=== PATIENT | female | born 1985 | race Caucasian/White ===

== ENCOUNTER 2019-03-31 12:31 | Emergency (ER) | payer OTHER, BC ==
[2019-03-31] MEDS ORDERED: ONDANSETRON 4 MG TAB.RAPDIS PO ONE (13:33)
[2019-03-31] MEDS ORDERED: ACETAMINOPHEN 325 MG TABLET PO ONE (13:33)
--- NOTE | 2019-03-31 13:34 | ER Document Report ---
ED Medical Screen (RME) - General Chief Complaint: Syncope Stated Complaint: HEADACHE Time Seen by Provider: 03/31/19 13:28 Primary Care Provider: MEHNAZ LILLY NP-C [Primary Care Provider] - Follow up as needed TRAVEL OUTSIDE OF THE [place] IN LAST 30 DAYS: No - HPI Notes: 03/31/19 13:29 Patient is a 33-year-old female with history of mental health disorder and hypertension who presents complaining of head injury and dizziness prior to arrival. Patient states that she was at work when she was bending over, felt dizzy, fell and hit her head off of the desk. Patient states that she hit the left forehead. She has noticed some swelling to the left side of her forehead. Patient states that she did not injure any other part of her body. Patient does recall feeling dizzy, losing her balance, falling, and hitting her head. Patient states that she also feels some tingling to her left cheek. Patient does not believe she had complete loss of consciousness. Patient states that she does feel sluggish with light sensitivity and nausea. Denies any fever, neck pain, changes in vision/speech/mentation/hearing, URI, sore throat, chest pain, palpitations, syncope, cough, shortness of breath, wheeze, dyspnea, abdominal pain, nausea/vomiting/diarrhea, urinary retention, dysuria, hematuria, loss of control of bowel or bladder, numbness, saddle anesthesia, muscle paraly sis/weakness, or rash. I have treated and performed a rapid initial assessment of this patient. A comprehensive ED assessment and evaluation of the patient, analysis of test results and completion of medical decision making process will be conducted by additional ED providers. CT [place] Head Criteria negative, NEXUS negative. I reviewed risk/benefit of imaging with the patient vs obs and she would like to hold off on CT imaging at this time as well unless discussed otherwise with main side provider. We will check labs due to dizziness prior to incident. PHYSICAL EXAMINATION: accompanied by female nurse GENERAL: Well-appearing, well-nourished and in no acute distress. A&Ox4. Answers questions appropriately but does have a flat affect. HEAD: No knutson sign. + mild swelling left forehead. EYES: Pupils equal round and reactive to light, extraocular movements intact, sclera anicteric, conjunctiva are normal. No raccoon eyes/entrapment ENT: EAC clear b/l. TM's intact b/l without erythema, fluid, or perforation. Nares patent and without discharge. oropharynx clear without exudates. No tonsilar hypertrophy or erythema. Moist mucous membranes. No sinus tenderness. No hemotympanum/CSF discharge. NECK: Normal range of motion, supple without lymphadenopathy. No rigidity. No midline tenderness. LUNGS: Breath sounds clear to auscultation bilaterally and equal. No wheezes rales or rhonchi. HEART: Regular rate and rhythm without murmurs, rubs, gallops. Musculoskeletal: Ext's b/l: FROM to passive/active. Strength 5+/5. No deficits noted. No bony tenderness of extremities. Back: FROM to passive/active. Strength 5+/5. No vertebral point tenderness, stepoffs, or deformities. No other bony tenderness or ecchymosis. Extremities: No cyanosis, clubbing, or edema b/l. Peripheral pulses 2+. Capillary refill less than 2 seconds. NEUROLOGICAL: NIH 0. GCS 15. Cranial nerves grossly intact. Normal speech, normal gait. Normal sensory, motor exams. Reflexes 2+ b/l. SANJAY's negative. Pronator drift negative. Heel/aldrich, finger/nose wnl. PSYCH: Normal mood, normal affect. SKIN: see above. - Related Data Allergies/Adverse Reactions: amoxicillin [Amoxicillin] Allergy (Verified 09/28/15 11:55) Past Medical History - Social History Frequency of alcohol use: None Drug Abuse: None - Past Medical History Cardiac Medical History: Reports: Hx Hypercholesterolemia, Hx Hypertension Pulmonary Medical History: Denies: Hx Tuberculosis Neurological Medical History: Reports: Hx Migraine. Denies: Hx Seizures Renal/ Medical History: Reports: Hx Ovarian Cysts. Denies: Hx Peritoneal Dialysis GI Medical History: Denies: Hx Irritable Bowel Psychiatric Medical History: Reports: Hx Anxiety Past Surgical History: Reports: Hx Abdominal Surgery - laproscopic surgeries, Hx Section - x 2, Hx Cholecystectomy, Hx Gynecologic Surgery - c-sections x 2. Denies: Hx Hysterectomy, Hx Pacemaker - Immunizations Immunizations up to date: Yes Hx Diphtheria, Pertussis, Tetanus Vaccination: Yes Physical Exam - Vital signs Vitals: Temp Pulse Resp BP Pulse Ox 98.2 F 74 16 136/83 H 100 03/31/19 13:08 03/31/19 13:08 03/31/19 13:08 03/31/19 13:08 03/31/19 13:08 Course - Vital Signs Vital signs: Temp Pulse Resp BP Pulse Ox 98.2 F 74 16 136/83 H 100 03/31/19 13:08 03/31/19 13:08 03/31/19 13:08 03/31/19 13:08 03/31/19 13:08 Doctor's Discharge - Discharge Referrals: MEHNAZ LILLY NP-C [Primary Care Provider] - Follow up as needed
[2019-03-31 13:56] LABS: ABSOLUTE BASOPHILS # (AUTO) 0.1 10^3/uL (0.0-0.2); ABSOLUTE LYMPHOCYTES (AUTO) 1.8 10^3/uL (0.5-4.7); ABSOLUTE MONOCYTES (AUTO) 0.4 10^3/uL (0.1-1.4); ABSOLUTE NEUT (AUTO) 5.5 10^3/uL (1.7-8.2); BASOPHILS % (AUTO) 0.8 % (0-2); HEMATOCRIT 36.4 % (36.0-47.0); HEMOGLOBIN 12.4 g/dL (12.0-15.5); LYMPHOCYTES % (AUTO) 23.2 % (13-45); MEAN CORPUSCULAR HEMOGLOBIN 28.5 pg (27.0-33.4); MEAN CORPUSCULAR HGB CONC 34.1 g/dL (32.0-36.0); MEAN CORPUSCULAR VOLUME 84 fl (80-97); MONOCYTES % (AUTO) 5.4 % (3-13); PLATELET COUNT 322 10^3/uL (150-450); RED BLOOD COUNT 4.36 10^6/uL (3.72-5.28); RED CELL DISTRIBUTION WIDTH 14.5 % (11.5-14.0); SEGMENTED NEUTROPHILS % (AUTO) 70.6 % (42-78); TOTAL CELLS COUNTED % (AUTO) 100 %; WHITE BLOOD COUNT 7.8 10^3/uL (4.0-10.5)
[2019-03-31 14:14] LABS: ALANINE AMINOTRANSFERASE 31 U/L (9-52); ALBUMIN 4.2 g/dL (3.5-5.0); ALKALINE PHOSPHATASE 87 U/L (38-126); ANION GAP 8 (5-19); ASPARTATE AMINO TRANSFERASE 24 U/L (14-36); BILIRUBIN,DIRECT 0.2 mg/dL (0.0-0.4); BILIRUBIN,TOTAL 0.5 mg/dL (0.2-1.3); BLOOD UREA NITROGEN 9 mg/dL (7-20); CALCIUM 9.2 mg/dL (8.4-10.2); CARBON DIOXIDE 26 mmol/L (22-30); CHLORIDE 106 mmol/L (98-107); GLUCOSE 95 mg/dL (75-110); POTASSIUM 3.9 mmol/L (3.6-5.0); SODIUM 139.8 mmol/L (137-145)
--- NOTE | 2019-03-31 15:25 | ER Document Report ---
ED Syncope and Near Syncope - General Chief Complaint: Syncope Stated Complaint: HEADACHE Time Seen by Provider: 03/31/19 13:28 Primary Care Provider: MEHNAZ LILLY NP-C [Primary Care Provider] - Follow up as needed TRAVEL OUTSIDE OF THE [place] IN LAST 30 DAYS: No - HPI Notes: Patient is a 33-year-old female that presents to the emergency department for chief complaint of near syncope. Patient states she was at work and began to feel nauseated and lightheaded. She states that she then collapsed to the ground hitting her left forehead on a counter on the way down. She does not believe she completely lost consciousness but states she does not entirely remember the fall. She has had pain over her left forehead and nausea since then. She does states she has a history of hypertension and 2 weeks ago her blood pressure medication was decreased because her blood pressure had been dropping into the 90s systolic. Patient states she has not had anything to eat or drink today. She does have history of similar episodes of passing out a few years ago. Patient denies any vision changes, chest pain, palpitations, numbness and weakness. She states she still feels some lightheadedness but is feeling better. Past Medical History: Hypertension, bipolar, depression Past Surgical History: Reviewed in chart Social History: Denies tobacco and alcohol use Family History: Reviewed and noncontributory for presenting illness Allergies: Reviewed, see documented allergy list. REVIEW OF SYSTEMS: CONSTITUTIONAL : No fever No chills No diaphoresis No recent illness EENT: No vision changes No congestion No sore throat CARDIOVASCULAR: No chest pain No palpitations Syncope RESPIRATORY: No shortness of breath No cough No difficulty breathing GASTROINTESTINAL: No abdominal pain nausea No vomiting No diarrhea GENITOURINARY: No dysuria No hematuria No difficulty urinating MUSCULOSKELETAL: No back pain No leg pain No arm pain SKIN: No rashes No lesions LYMPHATIC: No swollen, enlarged glands. NEUROLOGICAL: No lightheadedness headache No weakness No paresthesias PSYCHIATRIC: No anxiety No depression PHYSICAL EXAMINATION: Vital signs reviewed, nursing noted reviewed. GENERAL: Well-appearing, well-nourished and in no acute distress. HEAD: Atraumatic, normocephalic. EYES: Eyes appear normal, extraocular movements intact, sclera anicteric, conjunctiva are normal. ENT: nares patent, oropharynx clear without exudates. Dry mucous membranes. NECK: Normal range of motion, supple without lymphadenopathy LUNGS: Breath sounds clear to auscultation bilaterally and equal. No wheezes rales or rhonchi. HEART: Regular rate and rhythm without murmurs ABDOMEN: Soft, nontender, normoactive bowel sounds. No rebound, guarding, or rigidity. No masses appreciated. EXTREMITIES: Nontender, good range of motion, no pitting or edema. NEUROLOGICAL: No focal neurological deficits. Moves all extremities spontaneo usly Motor and sensory grossly intact on exam. PSYCH: Normal mood, normal affect. SKIN: Warm, Dry, normal turgor, no rashes or lesions noted on exposed skin - Related Data Allergies/Adverse Reactions: amoxicillin [Amoxicillin] Allergy (Verified 09/28/15 11:55) Past Medical History - Social History Smoking Status: Never Smoker Frequency of alcohol use: None Drug Abuse: None Family History: Reviewed & Not Pertinent Patient has suicidal ideation: No Patient has homicidal ideation: No - Past Medical History Cardiac Medical History: Reports: Hx Hypercholesterolemia, Hx Hypertension Pulmonary Medical History: Denies: Hx Tuberculosis Neurological Medical History: Reports: Hx Migraine. Denies: Hx Seizures Renal/ Medical History: Reports: Hx Ovarian Cysts. Denies: Hx Peritoneal Dialysis GI Medical History: Denies: Hx Irritable Bowel Psychiatric Medical History: Reports: Hx Anxiety Past Surgical History: Reports: Hx Abdominal Surgery - laproscopic surgeries, Hx Section - x 2, Hx Cholecystectomy, Hx Gynecologic Surgery - c-sections x 2. Denies: Hx Hysterectomy, Hx Pacemaker - Immunizations Immunizations up to date: Yes Hx Diphtheria, Pertussis, Tetanus Vaccination: Yes Physical Exam - Vital signs Vitals: Temp Pulse Resp BP Pulse Ox 98.2 F 74 16 136/83 H 100 03/31/19 13:08 03/31/19 13:08 03/31/19 13:08 03/31/19 13:08 03/31/19 13:08 Course - Re-evaluation Re-evalutation: 03/31/19 16:19 Vitals reviewed. Nursing notes reviewed. Patient is hemodynamically stable. She did not have anything to eat or drink today and has been having decreased blood pressure and changes to her blood pressure medications. I suspect her lightheadedness and near syncopal episode was related to transient drop in blood pressure. I do not suspect acute dysrhythmia or ACS. Patient has had water and crackers in the emergency room. She has complained of a headache which was not improved with Tylenol and was given a dose of Toradol. CT scan of the brain shows no acute intracranial injury. Patient has no focal neurologic deficits. She is well-appearing. She is currently feeling better. She was counseled on close head injury precautions as well as lying flat if she begins to feel lightheaded again. I did encourage her to drink more water and try to eat a meal prior to going to work. Patient will follow with her primary care doctor to discuss her blood pressure medications. She will return for new or worsening symptoms. She was stable at discharge. Laboratory 03/31/19 03/31/19 03/31/19 13:40 13:40 13:40 WBC 7.8 RBC 4.36 Hgb 12.4 Hct 36.4 MCV 84 MCH 28.5 MCHC 34.1 RDW 14.5 H Plt Count 322 Seg Neutrophils % 70.6 Lymphocytes % 23.2 Monocytes % 5.4 Eosinophils % 0.0 Basophils % 0.8 Absolute Neutrophils 5.5 Absolute Lymphocytes 1.8 Absolute Monocytes 0.4 Absolute Eosinophils 0.0 Absolute Basophils 0.1 Sodium 139.8 Potassium 3.9 Chloride 106 Carbon Dioxide 26 Anion Gap 8 BUN 9 Creatinine 0.75 Est GFR ( Amer) > 60 Est GFR (Non-Af Amer) > 60 Glucose 95 Calcium 9.2 Total Bilirubin 0.5 Direct Bilirubin 0.2 Neonat Total Bilirubin Not Reportable Neonat Direct Bilirubin Not Reportable Neonat Indirect Bili Not Reportable AST 24 ALT 31 Alkaline Phosphatase 87 Total Protein 7.0 Albumin 4.2 TSH 1.53 Serum HCG, Qual 03/31/19 13:40 WBC RBC Hgb Hct MCV MCH MCHC RDW Plt Count Seg Neutrophils % Lymphocytes % Monocytes % Eosinophils % Basophils % Absolute Neutrophils Absolute Lymphocytes Absolute Monocytes Absolute Eosinophils Absolute Basophils Sodium Potassium Chloride Carbon Dioxide Anion Gap BUN Creatinine Est GFR ( Amer) Est GFR (Non-Af Amer) Glucose Calcium Total Bilirubin Direct Bilirubin Neonat Total Bilirubin Neonat Direct Bilirubin Neonat Indirect Bili AST ALT Alkaline Phosphatase Total Protein Albumin TSH Serum HCG, Qual NEGATIVE Head CT 03/31/19 15:21 IMPRESSION: No acute intracranial findings. EVIDENCE OF ACUTE STROKE: NO. - Vital Signs Vital signs: Temp Pulse Resp BP Pulse Ox 98.2 F 74 16 136/83 H 100 03/31/19 13:08 03/31/19 13:08 03/31/19 13:08 03/31/19 13:08 03/31/19 13:08 - Laboratory Result Diagrams: 03/31/19 13:40 03/31/19 13:40 Laboratory results interpreted by me: 03/31/19 13:40 RDW 14.5 H - EKG Interpretation by Me Additional EKG results interpreted by me: 03/31/19 15:48 Interpreted by myself 1527: Normal sinus rhythm, rate 79, normal axis, no ectopy, no WPW Wellens or Brugada Discharge - Discharge Clinical Impression: Near syncope Closed head injury Qualifiers: Encounter type: initial encounter Qualified Code(s): S09.90XA - Unspecified injury of head, initial encounter Condition: Stable Disposition: HOME, SELF-CARE Instructions: Head Injury Precautions ([facility]), Near Syncopal Episode ([facility]), Concussion ([facility]) Additional Instructions: Please return to the emergency department if you have any worsening, or concern of your symptoms. Please return to the emergency department if you develop chest pain, difficulty breathing, severe abdominal pain, or ongoing vomiting. Please follow-up with your primary care physician in 2-3 days and any other recommended physicians. If prescribed, take all medications as directed. If you have any questions or concerns do not hesitate to return the emergency department for evaluation. Try to eat a meal and drink more water prior to going into work. Also try to drink water while you are at work. If you begin to feel lightheaded at all please sit with your head between your knees or lie flat on the ground to prevent completely passing out. Referrals: MEHNAZ LILLY, VERONICA-C [Primary Care Provider] - Follow up in 3-5 days
--- NOTE | 2019-03-31 16:01 | RADIOLOGY REPORT (SQ) ---
EXAM DESCRIPTION: CT HEAD WITHOUT COMPLETED DATE/TIME: 03/31/2019 3:35 pm REASON FOR STUDY: head injury COMPARISON: 12/04/2013 TECHNIQUE: Axial images acquired through the brain without intravenous contrast. Images reviewed wi th bone, brain and subdural windows. Images stored on PACS. All CT scanners at this facility use dose modulation, iterative reconstruction, and/or weight based d osing when appropriate to reduce radiation dose to as low as reasonably achievable (ALARA). [facility]: Dose Right [facility]: CareDose [facility]: Dose Right [facility]: Teradose 4D [facility]: Smart [employer] RADIATION DOSE: CT Rad equipment meets quality standard of care and radiation dose reduction techniq ues were employed. CTDIvol: 53.2 mGy. DLP: 991 mGy-cm. mGy. LIMITATIONS: None. FINDINGS: VENTRICLES: Normal size and contour. CEREBRUM: No masses. No hemorrhage. No midline shift. No evidence for acute infarction. Normal gra y/white matter differentiation. No areas of low density in the white matter. CEREBELLUM: No masses. No hemorrhage. No alteration of density. No evidence for acute infarction. EXTRAAXIAL SPACES: No fluid collections. No masses. ORBITS AND GLOBE: No intra- or extraconal masses. Normal contour of globe without masses. CALVARIUM: No fracture. PARANASAL SINUSES: No fluid or mucosal thickening. SOFT TISSUES: No mass or hematoma. OTHER: No other significant finding. IMPRESSION: No acute intracranial findings. EVIDENCE OF ACUTE STROKE: NO. COMMENT: Quality ID # [id number]: Final reports with documentation of one or more dose reduction techniques (e.g., Automated exposure control, adjustment of the mA and/or kV according to patient size, use of iterative reconstruction technique) TECHNICAL DOCUMENTATION: JOB ID: [id number] [place]-72 2010 [employer]- All Rights Reserved Reading location - IP/workstation name: Communication Science
[2019-03-31] MEDS ORDERED: KETOROLAC TROMETHAMINE INJ/PF 30 MG/1 ML SDV IM ONE (16:09)
[2019-03-31 17:02] VITALS: BP 128/82
--- NOTE | 2019-03-31 23:38 | EKG REPORT ---
SEVERITY:- NORMAL ECG - SINUS RHYTHM : Confirmed by: Nicolasa Brown MD 31-Mar-2019 23:36:22
== END 2019-03-31 17:02 | disposition home or self-care (01) ==
LOC: ER 12:31
DX: R55 Syncope and collapse (principal); R51 Headache; S09.90XA Unspecified injury of head, initial encounter; W18.30XA Fall on same level, unspecified, initial encounter; Y93.9 Activity, unspecified; Y92.9 Unspecified place or not applicable; Y99.9 Unspecified external cause status; I10 Essential (primary) hypertension; F31.9 Bipolar disorder, unspecified; E78.00 Pure hypercholesterolemia, unspecified; Z88.1 Allergy status to other antibiotic agents; Z90.49 Acquired absence of other specified parts of digestive tract
CPT/HCPCS: 93005; 99284; 96372; 36415; 84443; 84703; 85025; 80053; 70450; 93010; S0119; J1885